=== PATIENT | female | born 1950 | race Caucasian/White ===

== ENCOUNTER 2017-03-17 04:26 | Emergency (ER) | payer MEDICARE, OTHER ==
[~2017-03-17] VITALS: Ht 167.6 cm; Wt 59.9 kg
[~2017-03-17 04:26] MED LIST: ADVIL200 M1 PO; DAILY VITAMIN1 EAC2 PO; DILAUDID4 MG PO; KETOROLAC TROME10 MG PO; LIDOCAINE HCL100 ML MT; MIRALAX17 GM PO; NORCO 10-325 T1 EACH PO; OXYCODONE HCL5 MG PO; XARELTO10 MG PO
== END 2017-03-17 07:10 | disposition short-term general hospital (02) ==
LOC: ED 04:26
DX: L02.11 Cutaneous abscess of neck (principal); F17.200 Nicotine dependence, unspecified, uncomplicated; Z79.899 Other long term (current) drug therapy; Z98.890 Other specified postprocedural states
CPT/HCPCS: 96365; 96375; 99285; J1170; J3490; J7030

== ENCOUNTER 2023-06-09 12:49 | Emergency (ER) | payer MEDICARE, OTHER ==
[~2023-06-09] VITALS: Ht 167.6 cm; Wt 61.2 kg
[~2023-06-09 12:49] MED LIST changes: +ACETAMINOPHEN500 MG PO; +ATORVASTATIN CA80 MG PO; +BAYER CHEWABLE81 MG PO; +CLOPIDOGREL75 MG PO; +COMBIVENT RESPIM4 GM INH; +PERCOCET 7.5-31 EACH PO; +TRAMADOL HCL50 MG PO; +TUMS200 MG PO; +TYLENOL325 MG PO; +VITAMIN D350 MC3 PO; +WOMEN'S 50 PLU1 EACH PO
[2023-06-09] MEDS ORDERED: LISINOPRIL10 MG PO (12:59)
[2023-06-09] MEDS ORDERED: ATORVASTATIN CA80 MG PO (12:59)
[2023-06-09 13:13] LABS: BASOPHILS 0.3 % (0-2); HEMATOCRIT 36.9 % (35.0-50.0); HEMOGLOBIN 12.4 g/dL (12.0-18.0); LYMPHOCYTES 9.4 % (24-44); MCHC 33.7 g/dl (30-36); MONOCYTES 12.8 % (0-12); NEUTROPHILS 77.5 % (39-80); PLATELET COUNT 220 K/uL (140-440); RBC 3.77 M/ul (4.3-5.7); RDW 13.6 (10.5-15.0)
[2023-06-09 13:25] LABS: ALBUMIN 3.6 g/dL (3.4-5.0); ALBUMIN/GLOBULIN RATIO 1.03 (1.1-2.4); ANION GAP 17.5 (7-21); BILIRUBIN, TOTAL 0.6 ng/dL (0.2-1.0); BUN/CREATININE RATIO 17.09 (6.0-28.6); CALCIUM 8.8 mg/dL (8.5-10.1); CREATININE, SERUM 1.93 mg/dL (0.55-1.02); POTASSIUM 3.5 mmol/L (3.5-5.1); PROTEIN, TOTAL 7.1 g/dL (6.4-8.2)
[2023-06-09 13:45] LABS: INFLUENZA B NAA NEGATIVE (NEGATIVE); RESPIRATORY SYNCYTIAL VIR NAA NEGATIVE (NEGATIVE)
[2023-06-09 14:32] LABS: BILIRUBIN, URINE POSITIVE (negative); BLOOD/HGB, URINE NEGATIVE (Negative); KETONE, URINE SMALL (Negative); LEUK ESTERASE, URINE NEGATIVE (negative); NITRITE, URINE NEGATIVE (negative)
[2023-06-09 14:40] LABS: CRYSTALS, URINE NONE SEEN (0-1+); EPITHELIAL CELLS, URINE SQUAMOUS 2+ /lpf (0-1+); RED BLOOD CELLS, URINE 0-1 /hpf (0-5)
[2023-06-09 14:41] LABS: BACTERIA, URINE 1+ /hpf (negative); CASTS, URINE HYALINE 1+ \\lpf; COLLECTION TYPE, URINE CLEAN CATCH; REFLEX CULTURE, URINE No (No)
[2023-06-09 17:14] VITALS: BP 103/74
--- NOTE | 2023-06-09 21:44 | EKG ---
[facility] [address] [place] [address] Signed Normal sinus rhythm Nonspecific ST abnormality Abnormal ECG Confirmed by Maryanne Powell MD () on 06/09/2023 9:44:37 PM Electronically Signed By: MARYANNE POWELL MD 06/09/232143 PATIENT NAME: GRETEL LAO Electrocardiogram DATE OF : 46 PHYSICIAN: MARYANNE POWELL MD REPORT #: [id number] REPORT IS CONFIDENTIAL AND NOT TO BE RELEASED WITHOUT AUTHORIZATION
== END 2023-06-09 17:17 | disposition home or self-care (01) ==
LOC: ED 12:49
PROVIDERS: Emergency Medicine
DX: U07.1 COVID-19 (principal); F17.200 Nicotine dependence, unspecified, uncomplicated; Z88.8 Allergy status to other drugs, medicaments and biological substances; Z79.02 Long term (current) use of antithrombotics/antiplatelets; Z79.82 Long term (current) use of aspirin; Z79.899 Other long term (current) drug therapy
CPT/HCPCS: 36415; 71045; 80053; 81001; 84484; 85025; 87502; 93005; 93010; 99284-25; C9803; J7030; U0002